=== PATIENT | male | born 1935 | race Caucasian/White ===

== ENCOUNTER 2018-02-04 18:22 | Inpatient (IN) ==
[2018-02-04 18:53] VITALS: BP 0/0
--- NOTE | 2018-02-04 18:59 | DI ---
Exam: Single view of the chest. Comparison: None available. Reason for exam: Respiratory arrest. FINDINGS: Pacing pad is seen overlying the left hemithorax which limits interpretation. There is a right mainstem intubation. No pneumothorax is seen. Parenchymal changes consistent with chronic dragan g disease. Impression: 1. Right mainstem intubation. Recommend repositioning of the endotracheal tube by withdrawing the t ube approximately 3 cm. 2. Parenchymal changes consistent with chronic lung disease. 3. No pneumothorax. Evaluation of the left hemithorax is limited secondary to overlying artifact. Imaging findings were discussed directly with the emergency room physician at 1855 hours on 8.
[2018-02-04] MEDS ORDERED: EPINEPHRINE 1:10,000 SYRINGE IV PRN (19:11)
[2018-02-04] MEDS ORDERED: URO-JET MUCOUSMEMB STA (19:14)
[2018-02-04] MEDS ORDERED: DOPAMINE 400 MG in PREMIX 250 ML D5W 1 BAG IV SCH (19:30)
--- NOTE | 2018-02-04 20:31 | ED.PDOC ---
General ED Provider: Dr. CONNIE TERRAZAS Chief Complaint: Cardiac Arrest Stated Complaint: Had acute aspiration while eating at care home and subsequently went into cardiac arrest. Coded and EMS responded. Upon arrival to ER patient being coded and airway stabilized by paramedics(advised large amout of food debris was occluding airway /ET tube which was cleared)-Excellent Ventilation accomplised. Upon arrival here CPR in progress. Pupil initially noted miotic and minimally reactive. CPR continued after arrival. Advised by paramedics staff at [facility] advised them after treatment started and patient loaded in their ambulance that this patient was a DNR-NO PAPERWORK PROVIDED. Continued to ressusciate patient and after approximately 10 minutes, CPR halted during monitor check and patient had sucessfully regained Cardiac rhythm. Time Seen by Physician: 18:37 Mode of Arrival: Ambulance Information Source: Fdc, EMT Exam Limitations: Clinical condition Nursing and Triage Documentation Reviewed and Agree: Yes Does patient meet sepsis criteria?: No System Inflammatory Response Syndrome: Not Applicable Sepsis Protocol: For patient's 13 years and over: Temp is 96.8 and below OR 101 and greater Pulse >90 BPM Resp >20/minute Acutely Altered Mental Status Are patient's symptoms suggestive of a new infection, such as: -Pneumonia -Skin, Soft Tissue -Endocarditis -UTI -Bone, Joint Infection -Implantable Device -Acute Abdominal Infection -Wound Infection -Meningitis -Blood Stream Catheter Infection -Unknown Cardiac Resuscitation - Cardiac Resuscitation/Physical Exam Onset/Duration: Prior to arrival Witnessed Arrest: Yes Down-time Before BLS Initiated: <1 minute Down-time Before ALS Initiated: < 15 min Airway Prehospital Findings: Reports: Obstructed Breathing Prehospital Findings: Reports: Apnea Circulation/Rhythm Prehospital Findings: Reports: Pulses absent, Asystole Disability/Neurological Prehospital Findings: Reports: Unresponsive Airway Prehospital Intervention: Reports: Foreign body removal Breathing Prehospital Intervention: Reports: Oxygen, Intubation Circulation/Rhythm Prehospital Intervention: Reports: Chest compressions Breathing Prehospital Response: Present: ETT in airway, Equal breath sounds (Lt diminished) Circulation/Rhythm Prehospital Response: Present: Pulses absent Airway ED Findings: Patent Breathing ED Findings: Present: Apnea Circulation/Rhythm ED Findings: Present: Pulses absent Disability/Neurological ED Findings: Present: Unresponsive Airway ED Intervention: Oral airway Breathing ED Intervention: Oxygen, ETT repositioned Circulation/Rhythm ED Intervention: Chest compressions, IV/IO placed, Epinephrine Circulation/Rhythm ED Response: Present: Pulses present, Sinus Right Pupil: Reactive Left Pupil: Reactive EMS/Code Sheet Reviewed: Yes Patient is a DNR: Yes Resuscitation Successful: Yes Differential Diagnoses: Card. Rhythm Disturbance, Respiratory Failure Quality Indicator For Non-Traumatic Chest Pain/Syncope: EKG Performed Additional Information: Patients son and POA awared of current status and aknowledged he wanted. treatment continued. Past Medical History - Past Medical History Previously Healthy: No Endocrine: Reports: None Cardiovascular: Reports: Hypertension, A-Fib Respiratory: Reports: None, Unknown Hematological: Reports: None, Unknown, Other Gastrointestinal: Reports: None, Unknown Genitourinary: Reports: None, Unknown Neuro/Psych: Reports: CVA, Dementia Musculoskeletal: Reports: None Cancer: Reports: Other () - Surgical History General Surgical History: Reports: Unknown - Family History Family History: Reports: Unknown - Social History Smoking Status: Never smoker Hx Substance Use: No Alcohol Screening: None - Immunizations Tetanus Shot up to Date: No Interpretation - Radiology Interpretation Radiology Interpretation By: Radiologist Exam Interpreted: Portable CXR (noted ET in Rt MS bronchus) Xray Comments: et tube needs withdrawn Radiology Interpretation By: Radiologist Exam Interpreted: Portable CXR (problem cleared) Re-Evaluation - Re-Evaluation Time of Re-Evaluation: 22:00 (Remained on Dopamine and Vent) Status: Unchanged Vital Signs Stable: No (supported by pressors) Additional Comments: Son-decided after admission wanted his father extubated/ stop pressors Physician Notification - Case Discussed Physician Notified: Dr Ramirez Time of Notification: 19:05 Critical Care Note - Critical Care Note Total Time (mins): 120 Course - Course Hematology/Chemistry: 02/04/18 18:20 02/04/18 18:20 Orders, Labs, Meds: Lab Review 02/04/18 02/04/18 02/04/18 18:20 18:20 18:25 WBC 17.27 H RBC 3.76 L Hgb 12.0 L Hct 38.3 L MCV 101.9 H MCH 31.9 H MCHC 31.3 L RDW Coeff of Oscar 14.3 Plt Count 165 Neutrophils % (Manual) 39.0 L Band Neutrophils % 6.0 H Lymphocytes % (Manual) 46.0 Monocytes % (Manual) 3.0 Eosinophils % (Manual) 1.0 Metamyelocytes % 2.0 Myelocytes % 3.0 H Plt Morphology Comment Normal Anisocytosis 1+ Macrocytosis 1+ Puncture Site rt brachial O2 Saturation 99.0 ABG pH 7.075 L* ABG pCO2 62.8 H ABG pO2 184.0 H ABG HCO3 18.4 L ABG Total CO2 20 L ABG Base Excess -12 L Abdirizak Test + O2 Delivery Device FiO2 % 100.0 Sodium 140 Potassium 3.1 L Chloride 105 Carbon Dioxide 17 L Anion Gap 21.1 BUN 20 H Creatinine 0.90 Estimated GFR (MDRD) 81.00 BUN/Creatinine Ratio 22.22 Glucose 201 H Calcium 8.7 Total Bilirubin 0.3 AST 78 H ALT 78 Alkaline Phosphatase 97 Troponin I < 0.0100 Total Protein 5.5 L Albumin 2.0 L Globulin 3.5 Albumin/Globulin Ratio 0.57 Urine Color Urine Clarity Urine pH Ur Specific [place] Urine Protein Urine Glucose (UA) Urine Ketones Urine Blood Urine Nitrite Urine Bilirubin Urine Urobilinogen Ur Leukocyte Esterase Urine Microscopic RBC Urine Microscopic WBC Ur Squamous Epith Cells Calcium Oxalate Crystal Amorphous Sediment Urine Bacteria 02/04/18 02/04/18 02/04/18 18:52 19:00 19:26 WBC RBC Hgb Hct MCV MCH MCHC RDW Coeff of Oscar Plt Count Neutrophils % (Manual) Band Neutrophils % Lymphocytes % (Manual) Monocytes % (Manual) Eosinophils % (Manual) Metamyelocytes % Myelocytes % Plt Morphology Comment Anisocytosis Macrocytosis Puncture Site rt brachial Rbrach O2 Saturation 100.0 97.0 ABG pH 7.209 L* 7.256 L* ABG pCO2 53.4 H 43.1 ABG pO2 363.0 H 109.0 H ABG HCO3 21.3 L 19.2 L ABG Total CO2 23 20 L ABG Base Excess -7 L -8 L Abdirizak Test + + O2 Delivery Device Ventilator FiO2 % 100.0 60.0 Sodium Potassium Chloride Carbon Dioxide Anion Gap BUN Creatinine Estimated GFR (MDRD) BUN/Creatinine Ratio Glucose Calcium Total Bilirubin AST ALT Alkaline Phosphatase Troponin I Total Protein Albumin Globulin Albumin/Globulin Ratio Urine Color Yellow Urine Clarity Slightly Urine pH 7.0 Ur Specific [place] 1.020 Urine Protein Trace Urine Glucose (UA) Negative Urine Ketones Negative Urine Blood 2+ Urine Nitrite Negative Urine Bilirubin Negative Urine Urobilinogen 0.2 Ur Leukocyte Esterase 2+ Urine Microscopic RBC 10-20 Urine Microscopic WBC 10-20 Ur Squamous Epith Cells 2-5 Calcium Oxalate Crystal Trace Amorphous Sediment 2+ Urine Bacteria 2+ Orders Category Date Time Status ADMIT PATIENT INPATIENT .TO SCU (MONITORED BED) ADMISSION 02/04/18 21:14 Active ABG DRAW REQUEST Stat CARDIO 02/04/18 19:16 Completed ABG DRAW REQUEST Stat CARDIO 02/04/18 19:20 Completed ABG DRAW REQUEST Stat CARDIO 02/04/18 19:26 Completed CPR - ED ONLY Stat CARDIO 02/04/18 19:12 Completed EKG-(ED ONLY) Stat CARDIO 02/04/18 19:15 Completed TELEMETRY MONITORING TELE CARE 02/04/18 21:15 Active ED INSTRUMENTAL MUSICIAN APPLIED .ONCE EMERGENCY 02/04/18 19:12 Active ED IV/MEDIPORT/POWERPORT .ONCE EMERGENCY 02/04/18 19:12 Active Terry [ED CATHETER INSERTION AND CARE] .ONCE EMERGENCY 02/04/18 19:14 Active ABG Stat LAB 02/04/18 18:25 Completed ABG Stat LAB 02/04/18 18:52 Completed ARTERIAL BLOOD GAS [ABG] Stat LAB 02/04/18 19:26 Completed CBC W/ AUTO DIFF Stat LAB 02/04/18 18:20 Completed COMPREHENSIVE METABOLIC PANEL Stat LAB 02/04/18 18:20 Completed MANUAL DIFFERENTIAL Stat LAB 02/04/18 18:20 Completed TROPONIN I Stat LAB 02/04/18 18:20 Completed URINALYSIS C & S IF INDICATED Stat LAB 02/04/18 19:00 Completed URINE CULTURE Stat LAB 02/04/18 19:00 Results 0.9 % Sodium Chloride [Saline Flush] MEDS 02/04/18 19:11 Active 1 syr IVF PRN PRN Epinephrine [Epinephrine 1:10,000 Syringe] MEDS 02/04/18 19:11 Active 1 mg IV PRN PRN Lidocaine HCl [Uro-Jet] MEDS 02/04/18 19:14 Discontinued 10 ml [id number] ONCE STA Premix 250 ml D5w 1 bag MEDS 02/04/18 19:30 Active Dopamine HCl/D5w [Dopamine] 400 mg IV 1 mcg/kg/min RESUSCITATION STATUS Routine OTHERS 02/04/18 21:32 Ordered CHEST, 1V AP ONLY Stat RADS 02/04/18 18:32 Completed CXR [CHEST, 1V AP ONLY] Stat RADS 02/04/18 19:20 Completed Medications Generic Name Dose Route Start Last Admin Trade Name Freq PRN Reason Stop Dose Admin Epinephrine HCl 1 mg 02/04/18 19:11 Epinephrine 1:10,000 Syringe IV PRN PRN DIRECTED BY PHYSICIAN-CODE Dopamine HCl/Dextrose 400 mg/ 250 mls @ 2.1 mls/hr 02/04/18 19:30 02/04/18 18 :45 Dextrose IV 1 mcg/kg/min .Q24H DARCY 2.1 mls/hr Administration Protocol 1 MCG/KG/MIN Morphine Sulfate 2 mg 02/04/18 23:00 02/05/18 08:52 Morphine 2 Mg/Ml Syringe IVP 2 mg Q4H DARCY Administration Sodium Chloride 1 syr 02/04/18 19:11 Saline Flush IVF PRN PRN To flush IV Discontinued Medications Generic Name Dose Route Start Last Admin Trade Name Freq PRN Reason Stop Dose Admin Lidocaine HCl 10 ml 02/04/18 19:14 Uro-Jet MUCOUSMEMB 02/04/18 19:15 ONCE STA Vital Signs: Temp Pulse Resp BP Pulse Ox 02/04/18 20:10 14 02/04/18 18:55 8 L 0/0 L 02/04/18 18:37 92.1 F L 0 L 8 L 0/0 L 94 L Departure - Departure Time of Disposition: 22:30 Disposition: ADMITTED INPATIENT Discharge Problem: Cardiac arrest, Choking due to food in larynx, Acute respiratory insufficiency , History of dementia Condition: Critical Pt referred to PMD for follow-up: No (admitted) IPMP verified?: No Allergies/Adverse Reactions: Allergies No Known Allergies Allergy (Unverified 02/04/18 20:16) Home Medications: Ambulatory Orders Acetaminophen [Tylenol Extra Strength] 1,000 mg PO DAILY PRN 02/04/18 Ciprofloxacin HCl [Cipro] 500 mg PO BID 02/04/18 Citalopram Hydrobromide [Citalopram HBr] 20 mg PO DAILY 02/04/18 Divalproex Sodium [Depakote Sprinkles] 4 tab PO DAILY 02/04/18 Donepezil HCl 10 mg PO BEDTIME 02/04/18 Famotidine 20 mg PO BID 02/04/18 Hydrocodone/Acetaminophen [Hydrocodone-Acetamin 5-325 mg] 5 - 325 mg PO BEDTIME 02/04/18 Ipratropium/Albuterol Sulfate [Iprat-Albut 0.5-3(2.5) mg/3 ml] 3 ml IH TID 02/04 Melatonin 1.5 mg PO BEDTIME 02/04/18 Memantine HCl 10 mg PO BID 02/04/18 Risperidone [Risperdal] 0.5 mg PO BID 02/04/18 Tamsulosin HCl [Flomax] 0.4 mg PO DAILY 02/04/18 Trazodone HCl 50 mg PO BEDTIME 02/04/18 Disposition Discussed With: Family (Admitted to Dr Ramirez who assumed care in ER ) Additional Information: Advised by paramedics that staff at care home advised them after definitive ACLS treatment initiated and patient loaded into their ambulance that the patient was a DNR-NO PAPERWORK WAS PROVIDED. Treatment continued. Continued to resuscitate patient and after approximately 10 minutes, CPR halted during monitor check and patient had successfully regained Cardiac rhythm. CPR -Chest compressions discontinued and ventilatory support administered. IV .9 NS infused Bolus w/o. Patient was hypotensive unresponsive to IV fluids and Dopamine infusion was initiated Patients son contacted by a member or MFD present. I spoke with him and discussed current status. He did not want definitive therapy stopped and advised he would come to hospital. Additional Comments Additional Comments: [address] Ramirez and advised him of patients status as well as sons wishes. Stated he plans on admitting patient and discussing with family and with appropriate witness sign DNR and withdrawl of Life support if this is family's wishes.
[2018-02-04] MEDS: MORPHINE 2 MG/ML SYRINGE IVP SCH (22:46)
[2018-02-04 23:57] VITALS: TEMP 98; BMI 20.5
[2018-02-05] MEDS: MORPHINE 2 MG/ML SYRINGE IVP SCH ×4 (06:09→17:03)
--- NOTE | 2018-02-05 08:38 | DI ---
EXAM: Single view chest COMPARISON: Chest Xray from earlier today and HISTORY: Endotracheal tube FINDINGS: Endotracheal tube has been pulled back. The tip of the endotracheal tube is now about 2.5 cm above the nini. Lungs are unchanged. Cardiac and mediastinal silhouettes show no acute abnormal ity. No acute soft tissue or osseous abnormalities. IMPRESSION: Endotracheal tube as described with tip about 2.5 cm above the nini.
[2018-02-05] MEDS ORDERED: TRANSDERM-SCOP 1.5 MG PATCH TD PRN (13:54)
[2018-02-05] MEDS ORDERED: TRANSDERM-SCOP 1.5 MG PATCH TD ONE (13:57)
--- NOTE | 2018-02-07 15:04 | HP ---
DATE OF SERVICE: 02/04/18 CHIEF COMPLAINT: Shortness of breath and aspiration HISTORY OF PRESENT ILLNESS: This is an 82 year old male who resides at the intermediate. senior care nurse called as patient was having some chocking episodes and not able to breathe well. EMS went there and witnessed that the patient was aspirated. The patient was in full arrest. CPR in progress, intubated with 780 tube, 24 tip at the lips and the patient being brought to the emergency room. The patient was seen by Dr. Toscano and found to have aspiration pneumonia, hypoxemic respiratory failure and respiratory acidosis. The patient being started on antibiotics and admitted to the hospital. Hypokalemia was there. REVIEW OF SYSTEMS: Not able to get much information from the patient because of the condition. Talked to the son to get information. CONSTITUTIONAL: No fever, no chills. HEENT: Normal. ENDOCRINE: No weight gain; no weight loss. CVS: No chest pain. No PND, no orthopnea. Shortness of breath. No PND, no orthopnea. RESPIRATORY: Cough, Congestion. No hemoptysis. Aspiration. GI: No nausea, no vomiting. No abdominal pain. No melena. : No hematuria. No polyuria. MUSCULOSKELETAL: No joint swelling. PSYCHIATRIC: Not anxious. No depression. No suicidal thoughts. No homicidal thoughts. SKIN: Intact, no open lesions. PAST MEDICAL HISTORY: Depression BPH Alzheimer's Dementia with behavioral problems Osteoarthritis DJD spine GERD COPD Seizure disorder PAST SURGICAL HISTORY: None PERSONAL HISTORY: [facility] the [facility], needs help for ADL's MEDICATIONS: Trazodone Flomax Risperdal Namenda Hydrocodone Famotidine Donepezil DUO NEBS Depakote Citalopram Cipro Melatonin Tylenol ALLERGIES: No known drug allergies PHYSICAL EXAMINATION: V/S: Blood pressure 82/50, respiratory rate 22, heart rate 83, temperature 98.0 with saturation 100% on ventilator. HEENT: Atraumatic, normocephalic. No scleral icterus. Still grimacing and moaning on the vent. NECK: Supple. No JVD, no bruit. No lymphadenopathy. No thyromegaly. HEART: S1, S2 normal. No murmur. No cyanosis or clubbing. No ascites. LUNGS: Decreased and basilar crackles. Expiratory wheeze. No rales or rhonchi. ABDOMEN: Soft, nontender. Bowel sounds are active. No CVA tenderness. No rigidity or guarding. EXTREMITIES: No pedal edema. No cyanosis or clubbing. Left kim has intraosseous IV line. MUSCULOSKELETAL: Normal joints, no swelling. NEUROLOGIC: The patient responses to the painful stimuli with the grimacing. Not fighting the tube. SKIN: Intact; no open lesions. LYMPHATIC: No lymph nodes palpable. LABS: WBC 17.27, hgb 12.0, hct 83.2, plt count 165, Sodium 140, potassium 3.1, chloride 105, bicarb 17, BUN 20, creatinine 0.90 and glucose 201 ASSESSMENT: 1. Acute hypoxemic respiratory failure 2. Aspiration pneumonia 3. Hyperkalemia 4. Respiratory acidosis 5. Alzheimer's Dementia 6. Osteoarthritis 7. DJD spine PLAN: 1. Admit patient to the regular floor 2. CBC and CMP today and daily 3. Vent management 4. IV fluids 5. Daily I&O's 6. Zosyn TIME SPENT: MORE THAN 75 minutes MTDD
--- NOTE | 2018-02-07 15:13 | PN ---
DATE OF SERVICE: 02/04/18 SUBJECTIVE: The patient's son is the power of environmental attorney. The patient is to begin with the DNR. [facility] did not have an order and EMT intubated the patient. After a lengthy discussion with the patient's son, the patient's son was upset initially as the patient was intubated but as the patient was intubated he wanted to continue the vent at this time. Until he changes his mind the patient son's asked if it is OK to be admitted to the [facility] and agreed for the admission to [facility] and the vent management at this time. ADDENDUM: Had a talk with the patient's son who is the power of environmental attorney. The decision was made that they wanted to withdraw the ventilator and continue the comfort care at the [facility]. The patient's son and daughter both are available to talk and both are agreeable. Given history of DNR paper nurse gave the consent and we did extubate the patient, we will be placing the patient on the floor for palliative care and comfort measures at this time. We will be treating with the morphine and nonbreather oxygen. TIME SPENT: More than 35 minutes MTDD
--- NOTE | 2018-02-07 15:21 | PN ---
DATE OF SERVICE: 02/05/18 SUBJECTIVE: The patient on the venture mask breathing heavily, responses to the painful stimuli by grimacing. The patient's family in the room. REVIEW OF SYSTEMS: CONSTITUTIONAL: No fever, no chills. HEENT: Normal. ENDOCRINE: No weight gain, no weight loss. CVS: No angina symptoms. No CHF symptoms. No palpitations. No atypical chest pain for CAD. No shortness of breath. No PND, no orthopnea. RESPIRATORY: No cough, no hemoptysis. GI: No nausea, no vomiting. No abdominal pain. : No hematuria. No polyuria. MUSCULOSKELETAL: No joint swelling. PSYCHIATRIC: Not anxious. No depression. No suicidal thoughts. No homicidal thoughts. SKIN: Intact. No rash. PHYSICAL EXAMINATION: V/S: blood pressure 82/50, respiratory rate 24-30, heart rate 80, saturation is 76 on venture mask. HEENT: Normocephalic, atraumatic. NECK: Supple. No JVD, no carotid bruit. No lymphadenopathy. LUNGS:Decreased and basilar crackles. No rales or rhonchi. HEART: S1, S2 normal. No S3. No murmur, gallop or regurgitation. ABDOMEN: Soft, nontender. Bowel sounds active. No rigidity. No rebound or guarding. No CVA tenderness. EXTREMITIES: No cyanosis, clubbing or pedal edema. MUSCULOSKELETAL: No joint swelling. NEUROLOGIC: Awake, alert. No focal deficit. LYMPHATIC: No lymph nodes palpable. SKIN: Intact. Dry. LABS: Sodium 140, potassium 3.4, chloride 105, bicarb 17. BUN 20, creatinine 0.90, WBC 17.20, hgb 12.0, hct 38.3, plt count 165. ASSESSMENT: 1. Hypoxemic respiratory failure 2. Cardiopulmonary arrest, status post revival 3. Metabolic acidosis 4. Aspiration 5. Alzheimer's Dementia PLAN: 1. Comfort measures 2. Palliative care 3. Morphine 4. Nonbreather TIME SPENT: More than 35-40 minutes MTDD
--- NOTE | 2018-03-02 08:15 | DS ---
DATE OF SERVICE: 02/05/18 FINAL DIAGNOSIS: 1. Cardio pulmonary arrest after choking episode 2. Hypoxemic respiratory failure 3. Metabolic acidosis 4. Aspiration pneumonia 5. Alzheimer Dementia 6. BPH 7. Depression 8. Osteoarthritis 9. DJD spine 10.COPD 11.Bipolar disorder DISCHARGE INSTRUCTIONS: Body being released to the [facility] DIET INSTRUCTIONS: None ACTIVITY: None DISEASE SPECIFIC EDUCATION: None HOSPITAL COURSE: Day, Jasson 82 year old male who was at [facility]. The patient was having the dinner and witnessed choking episode. EMT was called and the patient was brought to the emergency room as the patient was hypoxic and saturation was 70. The patient being intubated. The family was there and the patient's family wanted DNR and given his poor prognosis after the consents from the son who is the power of the divorce attorney, DNR sign was done and the patient being extubated in the emergency room and admitted to the hospital on the Venturi mask for comfort measures only. With the given comfort measures by next morning the patient's condition gradually deteriorated. At 7:08 the patient being pronounced and the patient's body being released to the [facility] in [place]. TIME SPENT: MORE THAN 65 MINUTES MTDD
== END 2018-02-05 20:30 | disposition expired | DRG 205 ==
LOC: ED 18:22 → MEDSURG B 22:36
PROVIDERS: ADMIT Emergency Medicine; ATTEND Emergency Medicine
DX: T17.920A Food in respiratory tract, part unspecified causing asphyxiation, initial encounter (principal); J96.01 Acute respiratory failure with hypoxia; J69.0 Pneumonitis due to inhalation of food and vomit; E87.2 Acidosis; J44.9 Chronic obstructive pulmonary disease, unspecified; E87.5 Hyperkalemia; R06.81 Apnea, not elsewhere classified; R06.89 Other abnormalities of breathing; F03.90 Unspecified dementia, unspecified severity, without behavioral disturbance, psychotic disturbance, mood disturbance, and anxiety; R06.02 Shortness of breath; G30.9 Alzheimer's disease, unspecified; F02.80 Dementia in other diseases classified elsewhere, unspecified severity, without behavioral disturbance, psychotic disturbance, mood disturbance, and anxiety; F32.9 Major depressive disorder, single episode, unspecified; F31.9 Bipolar disorder, unspecified; M19.90 Unspecified osteoarthritis, unspecified site; M47.9 Spondylosis, unspecified; N40.0 Benign prostatic hyperplasia without lower urinary tract symptoms
CPT/HCPCS: 31500; 36415; 80053; 81001; 82803; 84484; 85007; 85025; 87086; 93005; 93010; 94002; 94003; 96361; 96365; 96366; 96375; 99223; 99233; 99285